=== PATIENT | female | born 1975 ===

== ENCOUNTER 2024-12-15 15:25 | Emergency (ER) | payer SELFPAY ==
[2024-12-15 15:55] VITALS: BP 130/104; PULSE 132; RESP 20; TEMP 36.6; O2SAT 98; BMI 32.3
--- NOTE | 2024-12-15 16:17 | PC.NURSE ---
patient states she is having chest pain.
--- NOTE | 2024-12-15 16:24 | EKG_ITS ---
[address] [address] Test Date: 2024-12-15 Pat Name: Radha Rodríguez Department: Room: Gender: Female Offset Press Assistant: VIVIANE : 1975 Requested By: Order Number: [id number] Reading MD: Dario Lopez Measurements Intervals [place] Rate: 114 P: 64 [place]: 164 QRS: 35 QRSD: 98 T: 64 QT: 322 QTc: 443 Interpretive Statements Sinus tachycardia Possible Left atrial enlargement Left ventricular hypertrophy ( Sokolow-De Guzman , Jose J product ) Electronically Signed On 12-16-2024 8:42:01 PDT by Dario Lopez
--- NOTE | 2024-12-17 12:33 | ED.ABDPAIN ---
HPI - Abdominal Pain General Chief Complaint: Abdominal Pain Stated Complaint: heart failure, sob, weaknes Time Seen by Provider: 12/15/24 16:31 Source: patient Mode of arrival: Wheelchair Related Data Allergies Allergy/AdvReac Type Severity Reaction Status Date / Time Penicillins Allergy Unknown Verified 12/15/24 15:54 Patient History Social History Smoking Status: Current every day smoker Smoking Status: Current every day smoker Exam Initial Vital Signs Initial Vital Signs: Vital Signs Temperature 97.8 F 12/15/24 15:55 Pulse Rate 132 H 12/15/24 15:55 Respiratory Rate 20 12/15/24 15:55 Blood Pressure 130/104 H 12/15/24 15:55 Pulse Oximetry 98 12/15/24 15:55 Oxygen Delivery Method Room Air 12/15/24 15:55 Discharge Plan Departure Patient Disposition: Left Without Being Seen Clinical Impression: Patient left after triage
== END 2024-12-15 19:10 | disposition left against medical advice (07) ==
PROVIDERS: Emergency Provider Family Medicine
DX: R06.02 Shortness of breath (principal); R10.9 Unspecified abdominal pain
CPT/HCPCS: 93005; 99281